=== PATIENT | female | born 1980 | race Two or more races ===

== ENCOUNTER 2025-09-06 14:47 | Emergency (ER) | payer OTHER ==
[~2025-09-06] VITALS: Ht 165.1 cm; Wt 62.0 kg
[2025-09-06 15:42] LABS: PLATELET COUNT (AUTO) 235 K/uL (150-450); RED BLOOD CELL COUNT(AUTO) 3.82 MIL/uL (4.00-5.20); RED CELL DISTRIBUTION WIDTH 15.8 % (11.5-14.5); WHITE BLOOD COUNT (AUTO) 4.1 K/uL (4.5-11.0)
[2025-09-06 15:47] VITALS: TEMP 98.2
[2025-09-06 15:52] LABS: CALCIUM, TOTAL 9.1 mg/dL (8.8-10.5); CREATININE 0.93 mg/dL (0.60-1.30); GLOMERULAR FILTR. RATE CALC > 60 mL/min (>60); GLUCOSE,RANDOM 88 mg/dL (70-110); SODIUM SERUM 137 mmol/L (136-145); UREA NITROGEN, BLOOD 14 mg/dL (7-18)
[2025-09-06 16:50] LABS: COVID AG,FIA SOURCE NASAL SWAB
[2025-09-06 17:20] LABS: SARS-COV2 (COVID) ANTIGEN,FIA Negative (Negative)
[2025-09-06 18:24] LABS: APPEARANCE,URINE CLEAR (CLEAR); GLUCOSE, URINE (UA) NEGATIVE (NEGATIVE); LEUKOCYTE ESTERASE ,URINE TRACE (NEGATIVE); NITRATE,URINE NEGATIVE (NEGATIVE); OCCULT BLOOD,URINE NEGATIVE (NEGATIVE); PH,URINE DRUG SCREEN 6.0 (5.0-8.0); SPECIFIC GRAVITIY, URINE 1.008 (1.003-1.030)
[2025-09-06 18:29] LABS: ALCOHOL, URINE DRUG SCREEN NEGATIVE (NEGATIVE); AMPHET/METH SCREEN,URINE NEGATIVE (NEGATIVE); BARBITURATE SCREEN, URINE NEGATIVE (NEGATIVE); CANNABINOID SCREEN,URINE NEGATIVE (NEGATIVE); COCAINE SCREEN,URINE NEGATIVE (NEGATIVE); METHADONE SCREEN, URINE NEGATIVE (NEGATIVE)
[2025-09-06 18:38] LABS: SQUAMOUS EPITHELIAL CELL,UR Rare /LPF (None Seen)
[2025-09-06 20:34] VITALS: BP 125/90; PULSE 96; RESP 18; O2SAT 97
== END 2025-09-07 05:24 ==
LOC: EMS 14:47
DX: R41.82 Altered mental status, unspecified (principal); B38.4 Coccidioidomycosis meningitis; F15.90 Other stimulant use, unspecified, uncomplicated; Z00.8 Encounter for other general examination; Z20.822 Contact with and (suspected) exposure to COVID-19
CPT/HCPCS: 70450; 80048; 80307; 81001; 85025; 99284; G0480